=== PATIENT | male | born 1995 | race Caucasian/White ===

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

== ENCOUNTER 2019-04-26 09:26 | Day surgery (SDC) | payer BC ==
[~2019-04-26 09:26] MED LIST: Lactated Ringers 1,000 ML IV SCH; Lidocaine 1%/Sod Bicarbonate in NS 8.4% 1 ML Syringe IDERM PRN; Sodium Chloride 0.9% 10 ML Syringe FLUSH PRN
[2019-04-26] MEDS ORDERED: Propofol 200 MG/20 ML SDV ONE (09:57)
[2019-04-26] MEDS ORDERED: fentaNYL 250 MCG/5 ML SDV ONE (09:57)
[2019-04-26] MEDS ORDERED: Lidocaine 1% 4 ML ONE (09:57)
[2019-04-26] MEDS ORDERED: Midazolam 1 MG/ML 2 ML SDV ONE ×2 (09:57→11:39)
[2019-04-26] MEDS ORDERED: Ondansetron 4 MG/2 ML SDV ONE (09:57)
--- NOTE | 2019-04-26 10:20 | PCM.PREANE ---
Preanesthetic Assessment - Procedure Proposed Procedure: excision of pilonidal cyst - Anesthesia/Transfusion/Family Hx Anesthesia History: Prior Anesthesia Without Reaction Family History of Anesthesia Reaction: No Transfusion History: No Prior Transfusion(s) - Review of Systems General: No Symptoms Pulmonary: No Symptoms Cardiovascular: No Symptoms Gastrointestinal: No Symptoms Neurological: No Symptoms Other: Reports: None - Physical Assessment NPO Status Date: 04/25/19 NPO Status Time: 23:00 Vital Signs: 125/79 84 96% 16 98.3 Height: 5 ft 9 in Weight: 59.1 kg ASA Class: 1 Mental Status: Alert & Oriented x3 Airway Class: Mallampati = 1 Dentition: Reports: Normal Dentition Thyro-Mental Finger Breadths: 3 Mouth Opening Finger Breadths: 3 ROM/Head Extension: Full Lungs: Clear to Auscultation, Normal Respiratory Effort Cardiovascular: Regular Rate, Regular Rhythm - Allergies Allergies/Adverse Reactions: Allergies Allergy/AdvReac Type Severity Reaction Status Date / Time No Known Allergies Allergy Verified 04/25/19 15:28 - Blood Blood Available: No - Acknowledgements Anesthesia Type Planned: MAC Pt an Appropriate Candidate for the Planned Anesthesia: Yes Alternatives and Risks of Anesthesia Discussed w Pt/Guardian: Yes Pt/Guardian Understands and Agrees with Anesthesia Plan: Yes PreAnesthesia Questionnaire HEENT History: Reports: Epistaxis, Impaired Vision Other HEENT History: wears glasses Cardiovascular History: Reports: None Respiratory History: Reports: None Gastrointestinal History: Reports: Other (See Below) Other Gastrointestinal History: PILONIDAL CYST Genitourinary History: Reports: None INFECTION PREVENTION COORDINATOR History: Reports: None Neurological History: Reports: None Psychiatric History: Reports: None Endocrine/Metabolic History: Reports: None Hematologic History: Reports: None Immunologic History: Reports: None Oncologic (Cancer) History: Reports: None Dermatologic History: Reports: None - Past Surgical History Head Surgeries/Procedures: Reports: None HEENT Surgical History: Reports: None Cardiovascular Surgical History: Reports: None Respiratory Surgical History: Reports: None GI Surgical History: Reports: None Female Surgical History: Reports: None Male Surgical History: Reports: None Endocrine Surgical History: Reports: None Neurological Surgical History: Reports: None Musculoskeletal Surgical History: Reports: Other (See Below) Other Musculoskeletal Surgeries/Procedures:: RIGHT WRIST FRACTURE WITH CLOSED REDUCTION Oncologic Surgical History: Reports: None Dermatological Surgical History: Reports: None - SUBSTANCE USE Smoking Status *Q: Never Smoker Tobacco Use Within Last Twelve Months: No Second Hand Smoke Exposure: No Days Per Week of Alcohol Use: 0 Recreational Drug Use History: No - HOME MEDS Home Medications: Home Meds Cetirizine [ZyrTEC] 10 mg PO DAILY 12/06/16 [History] Mometasone Furoate [Nasonex] 17 gm NS ASDIRECTED #1 spray.pump 12/06/16 [Rx] - CURRENT (IN HOUSE) MEDS Current Meds: Current Medications Lactated Ringer's (Ringers, Lactated) 1,000 mls @ 125 mls/hr IV ASDIRECTED HARMAN Stop: 04/26/19 23:00 Lidocaine/Sodium Bicarbonate (Buffered Lidocaine 1% In Ns 8.4%) 0.25 ml IDERM ONETIME PRN PRN Reason: Prior to IV Start Stop: 04/26/19 18:00 Sodium Chloride (Saline Flush) 10 ml FLUSH ASDIRECTED PRN PRN Reason: Keep Vein Open Stop: 04/26/19 18:00 Discontinued Medications Fentanyl (Sublimaze) Confirm Administered Dose 250 mcg .ROUTE .STK-MED ONE Stop: 04/26/19 09:58 Lidocaine HCl (Xylocaine-Mpf 1%) Confirm Administered Dose 4 mls @ as directed .ROUTE .STK-MED ONE Stop: 04/26/19 09:58 Midazolam HCl (Versed 1 Mg/Ml) Confirm Administered Dose 2 mg .ROUTE .STK-MED ONE Stop: 04/26/19 09:58 Ondansetron HCl (Zofran) Confirm Administered Dose 4 mg .ROUTE .STK-MED ONE Stop: 04/26/19 09:58 Propofol (Diprivan 20 Ml) Confirm Administered Dose 200 mg .ROUTE .STK-MED ONE Stop: 04/26/19 09:58
[2019-04-26] MEDS ORDERED: Bupivacaine 0.5%/EPINEPHrine 1:200,000 50 ML MDV ONE (10:51)
[2019-04-26] MEDS ORDERED: Ketorolac 30 MG/ML SDV ONE (12:23)
[2019-04-26] MEDS ORDERED: fentaNYL 100 MCG/2 ML SDV IVPUSH PRN (12:35)
--- NOTE | 2019-04-26 12:37 | PCM48HPAN ---
Post Anesthesia Note - EVALUATION WITHIN 48HRS OF ANESTHETIC Vital Signs in Normal Range: Yes Patient Participated in Evaluation: Yes Respiratory Function Stable: Yes Airway Patent: Yes Cardiovascular Function Stable: Yes Hydration Status Stable: Yes Pain Control Satisfactory: Yes Nausea and Vomiting Control Satisfactory: Yes Mental Status Recovered: Yes Vital Signs: Last Vital Signs Temp 98.2 F 04/26/19 09:54 Pulse 84 04/26/19 09:54 Resp 16 04/26/19 09:54 BP 125/79 04/26/19 09:54 Pulse Ox 96 04/26/19 09:54 103/67 96 14 97.9 96%
--- NOTE | 2019-04-26 12:50 | PCM.PRNOTE ---
- Free Text/Narrative Note: Date: 04/26/2019 Surgeon: Peryr Barragan MD Diagnosis: Pilonidal disease Operation: Wide local excision EBL: minimal Specimens: none sent Findings: relatively minor pilonidal disease without much extension Detailed Report: Was taken to the operating room and placed prone. MAC sedation was administered , and the patient was placed in jackknife position with the buttocks spread using silk tape. The skin was prepped and draped in sterile fashion. Timeout was performed. The scalpel was used to make an elliptical incision encompassing the area of pilonidal disease. Diathermy was used to dissect through subcutaneous tissue down to the periosteum of the sacrum. It appeared that all of the disease was contained within the specimen. The specimen was not sent for pathology. On the patient's right side, a flap of skin and subcutaneous tissue was raised from within the wound bed, and the wound was closed in layers using interrupted Vicryl suture. This brought wound closure slightly off of midline. Several interrupted horizontal mattress sutures were placed. A total of 30 cc half percent Marcaine with epinephrine was used for local anesthetic. A dressing of dry gauze and Tegaderm was applied. Patient tolerated the procedure well. Perry Barragan MD General Surgery
[2019-04-26 13:34] VITALS: BP 121/87; PULSE 71
== END 2019-04-26 13:30 | disposition home or self-care (01) ==
LOC: JD.SDS 09:26
PROVIDERS: ATTEND Surgery
DX: L05.91 Pilonidal cyst without abscess (principal); K21.9 Gastro-esophageal reflux disease without esophagitis
CPT/HCPCS: 11771; J1885; J2001; J2250; J2405; J2704; J3010; J3490; J7120; 00300